=== PATIENT | male | born 1985 | race Caucasian/White ===

== ENCOUNTER 2019-10-20 10:03 | Outpatient (CLI) | payer OTHER | END 2019-10-20 10:35 | disposition home or self-care (01) | LOC: LAB 10:03 | PROVIDERS: ATTEND Orthopaedic Surgery | DX: D64.89 Other specified anemias (principal); E88.89 Other specified metabolic disorders; D68.8 Other specified coagulation defects; N39.0 Urinary tract infection, site not specified; Z22.322 Carrier or suspected carrier of Methicillin resistant Staphylococcus aureus; Z76.89 Persons encountering health services in other specified circumstances; I49.8 Other specified cardiac arrhythmias; I10 Essential (primary) hypertension ==

== ENCOUNTER 2019-10-21 10:35 | Outpatient (CLI) | payer OTHER | END 2019-10-21 10:40 | disposition home or self-care (01) | LOC: LAB 10:35 | PROVIDERS: ATTEND Orthopaedic Surgery | DX: D69.6 Thrombocytopenia, unspecified (principal) ==

== ENCOUNTER 2019-10-27 06:00 | Day surgery (SDC) | payer OTHER ==
[2019-10-27] MEDS ORDERED: KEFLEX500 MG PO (12:14)
== END 2019-10-27 15:10 | disposition home or self-care (01) ==
LOC: CIR.AMB 06:00
PROVIDERS: ATTEND Orthopaedic Surgery
DX: T79.2XXD Traumatic secondary and recurrent hemorrhage and seroma, subsequent encounter (principal); M61.40 Other calcification of muscle, unspecified site

== ENCOUNTER 2021-02-10 09:10 | Outpatient (CLI) | payer OTHER ==
[~2021-02-10 09:10] MED LIST: KEFLEX500 MG PO
== END 2021-02-10 10:17 | disposition home or self-care (01) ==
LOC: RAD 09:10
PROVIDERS: ATTEND Orthopaedic Surgery
DX: M25.561 Pain in right knee (principal)